=== PATIENT | female | born 1985 | race Caucasian/White ===

== ENCOUNTER → 2020-04-27 10:31 | Outpatient (CLI) | payer OTHER, MEDICAID, SELFPAY ==
--- NOTE | 2020-04-27 | DI.US.S_ITS ---
PROCEDURE: US THYROID INDICATIONS: Nontoxic single thyroid nodule TECHNIQUE: Real-time scanning was performed of the thyroid gland, with image documentation. COMPARISON: None. FINDINGS: Right: Thyroid lobe measures 6.0 x 2.1 x 1.8 cm, and is homogeneous in echotexture. Left: Thyroid lobe measures 5.7 x 1.9 x 2.5 cm, and is homogenous in echotexture. Isthmus: 1.8 mm thick. Nodule number: 1 Location: Left inferior Size: 3.3 x 1.6 x 2.2 cm. Composition: Solid Echogenicity: iso-hyperechoic Shape: wider than tall. Margins: Ranjeet Echogenic foci: Non Total points: 3 ACR TI-RADS category: Mildly suspicious IMPRESSION: 1. A mildly suspicious nodule in the inferior pole of the left thyroid lobe (TI-RAD 3). Recommend fine needle aspiration for tissue diagnosis. ACR TI-RADS definitions and recommendations: TI-RADS 1 (benign): 0 points. FNA not needed. TI-RADS 2 (not suspicious): 2 points. FNA not needed. TI-RADS 3 (mildly suspicious): 3 points. * FNA if 2.5 cm or larger, follow up if 1.5 cm or larger (at 1, 3, and 5 years). TI-RADS 4 (moderately suspicious): 4-6 points. * FNA if 1.5 cm or larger, follow up if 1 cm or larger (at 1, 2, 3, and 5 years). TI-RADS 5 (highly suspicious): 7 points or more. * FNA if 1 cm or larger, follow up if 0.5 cm or larger (every year for 5 years). Dictated by: Donte Higuera M.D. on 04/27/2020 at 11:54 Approved by: Donte Higuera M.D. on 04/27/2020 at 11:59
== END ==
PROVIDERS: PCP Family Medicine; Referring Provider Family Medicine; Visit Provider Family Medicine
DX: E04.1 Nontoxic single thyroid nodule (principal); E06.3 Autoimmune thyroiditis
CPT/HCPCS: 76536

== ENCOUNTER 2021-09-20 10:30 | Outpatient (RCR) | payer OTHER, MEDICAID, SELFPAY ==
--- NOTE | 2021-05-30 12:00 | PT.OPPOC ---
Physical, Occupational & Speech Therapy At [facility] Current Diagnoses Pain in unspecified hip (05/30/21) Dysmenorrhea, unspecified (05/30/21) Pelvic and perineal pain (05/30/21) Visit Care Team Role Provider Type Other Providers Specialty: Address: Phone: Fax: Email: Tj Sidhu ND Family Provider Non-Staff Primary Care Provider Specialty: Naturopathy Address: [address] [place] [address], [address], [place], [address] Email: Susana Gauthier DO Attending Provider Non-Staff Referring Provider Specialty: MICROBIOLOGY DIRECTOR Address: [address] [place] [address], [address], [address] Email: Plan Of Care PT-OP-T Assessment and Plan Start: 05/30/21 07:38 Freq: Status: Active Protocol: Document 05/30/21 09:00 AMB (Rec: 06/02/21 08:10 AMB [id number]) Physical Therapy Assessment Rehab Potential Rehabilitation Potential Good Evaluation Complexity Number of Personal Factors/Comorbidities 3 or More Number of Body Systems Impaired 4 or More Clinical Presentation at Evaluation Evolving Impairments Impairments Activity Tolerance,Functional Activities,Pain,ROM Goals Two Impairment Activity tolerance Short Term Goal (STG) Sarah will be consistent and independet with a HEP for her low back/pelvis/hip. STG Duration 4 weeks Residential Goal (LTG) Sarah will walk for 20 minutes without an increase in her baseline pain. LTG Duration 10 weeks One Impairment ROM Short Term Goal (STG) Sarah will improve her lumbar extension to 25 degrees without an increase in pain. STG Duration 5 weeks Assessment Summary Assessment Sarah attends PT with chronic dysmennorhea and is awaiting surgery for endometriosis. She states in the past 2 years her back and right hip pain have significantly worsened, so now she cannot walk more than 10 minutes and has stopped dancing. She will benefit from physical therapy for assitance in returning to activity in the context of likely having surgery for endometriosis. Physical Therapy Plan Frequency and Duration Frequency of Treatment 1x/Week Duration of Treatment 10 weeks Plan of Care Start Date 05/30/21 Plan of Care End Date 08/11/21 Therapeutic Interventions Therapeutic Interventions Gait Training,Home Exercise Program,Manual Therapy, Neuromuscular Re-education, Self-Care/Home Management,Soft Tissue Mobilization, Therapeutic Activities, Therapeutic Exercises Modalities Biofeedback,Cold Pack/Ice Massage,Electric Stimulation, Hot Packs Next Visit Focus/Plan Next Note Type Treatment Note Next Visit Plan teach MET for SI rotation, stretching program for endo Plan of Care Dates Plan of Care Start Date 05/30/21 Plan of Care End Date 08/11/21 Electronically Signed by: Amarilys Fajardo, PT 06/02/21 0811 Please Sign and Return: I have reviewed this Plan of Care and certify that the skilled therapy services above are required to meet the patient?s needs. Physician Signature Date Printed Name and Credentials Clinical Instructor Signature Printed Name and Credentials
--- NOTE | 2021-05-30 12:00 | PT.OIE ---
Current Diagnoses Pain in unspecified hip (05/30/21) Dysmenorrhea, unspecified (05/30/21) Pelvic and perineal pain (05/30/21) Visit Care Team Role Provider Type Other Providers Specialty: Address: Phone: Fax: Email: Tj Sidhu ND Family Provider Non-Staff Primary Care Provider Specialty: Naturopathy Address: [address] [place] [address], [address], [place], [address] Email: Susana Gauthier DO Attending Provider Non-Staff Referring Provider Specialty: SYSTEM VALIDATION ENGINEER Address: [address] [place] [address], [address], [place], [address] Email: Physical Therapy Initial Evaluation PT-OP-A Visit Information Start: 05/30/21 07:38 Freq: Status: Active Protocol: Document 05/30/21 09:00 AMB (Rec: 06/01/21 15:58 AMB [id number]) Out-Patient Physical Therapy Visit Information Visit Information Visit Type Initial Evaluation Visit Start Time 09:00 Visit Stop Time 09:45 Total Visit Minutes 45 Visit Number 1 PT-OP-B Current Condition Start: 05/30/21 07:38 Freq: Status: Active Protocol: Document 05/30/21 09:09 AMB (Rec: 05/30/21 09:22 AMB [id number]) Current Condition History of Current Condition Onset Date 2 years ago Current Complaints R hip/ LBP/ painful periods History of Current Condition Period pain since age 12, chronic pelvis/hip pain in the last 2 years. Doesn't walk because of pain 10 minutes of walking currently. Low back pain. Waiting on MRI, then hoping to have surgery for endometriosis. Not on control because had TIA type symptoms when on it. When on period takes tramadol, but then gets migraine afterwards, has to call out of work for 5 days. Prior Treatments and Tests Heat helps, possibly hip extension and impact (hopping/ running) makes it worse. Treatment Goals Patient/Caregiver Goals Be able to dance again Prior Functional Status Baseline Function- ADL's Independent Baseline Function- Mobility Independent Current Functional Impairments (Reported) Functional Limitations- ADL's Limited walking, working, dancing because of pain Personal Factors Other Personal Factors That May Effect pelvic pain, hip pain, back Therapy/Recovery pain, dysmenorrhea PT-OP-C Subjective Start: 05/30/21 07:38 Freq: Status: Active Protocol: Document 05/30/21 09:00 AMB (Rec: 06/02/21 07:50 AMB [id number]) OP-PT Pain Assessment Comments Pain Comments Low back ranges from 0-5, abdomen 9/10 during period, right hip 0-5 PT-OP-J Posture/Palpation/Skin Start: 06/02/21 07:33 Freq: Status: Active Protocol: Document 05/30/21 09:00 AMB (Rec: 06/02/21 07:50 AMB [id number]) Posture Evaluation Comments Posture Comments Supine: R ASIS rotated anteriorly, R malleolus appears long Palpation Assessment Location One Palpation Location R hip/abdomen Palpation Findings Soft Tissue Tightness,Muscle Guarding,Tenderness Palpation Details Tenderness over R psoas, R abdomen PT-OP-K Range of Motion Start: 06/02/21 07:33 Freq: Status: Active Protocol: Document 05/30/21 09:00 AMB (Rec: 06/02/21 07:50 AMB [id number]) Lumbar Spine Range of Motion Lumbar Spine Active Degrees Testing Position Standing Flexion 40 Extension 20 Lateral Flexion Left 20 Lateral Flexion Right 20 Comments pain with extension and right sidebending PT-OP-Q Treatments Start: 05/30/21 07:38 Freq: Status: Active Protocol: Document 05/30/21 09:00 AMB (Rec: 06/02/21 07:50 AMB [id number]) Therapeutic Exercises Standing Exercises 1 Standing Exercise Name active hamstring stretch against wall PT-OP-T Assessment and Plan Start: 05/30/21 07:38 Freq: Status: Active Protocol: Document 05/30/21 09:00 AMB (Rec: 06/02/21 08:10 AMB [id number]) Physical Therapy Assessment Rehab Potential Rehabilitation Potential Good Evaluation Complexity Number of Personal Factors/Comorbidities 3 or More Number of Body Systems Impaired 4 or More Clinical Presentation at Evaluation Evolving Impairments Impairments Activity Tolerance,Functional Activities,Pain,ROM Goals Two Impairment Activity tolerance Short Term Goal (STG) Sarah will be consistent and independet with a HEP for her low back/pelvis/hip. STG Duration 4 weeks Prize Coordinator Goal (LTG) Sarah will walk for 20 minutes without an increase in her baseline pain. LTG Duration 10 weeks One Impairment ROM Short Term Goal (STG) Sarah will improve her lumbar extension to 25 degrees without an increase in pain. STG Duration 5 weeks Assessment Summary Assessment Sarah attends PT with chronic dysmennorhea and is awaiting surgery for endometriosis. She states in the past 2 years her back and right hip pain have significantly worsened, so now she cannot walk more than 10 minutes and has stopped dancing. She will benefit from physical therapy for assitance in returning to activity in the context of likely having surgery for endometriosis. Physical Therapy Plan Frequency and Duration Frequency of Treatment 1x/Week Duration of Treatment 10 weeks Plan of Care Start Date 05/30/21 Plan of Care End Date 08/11/21 Therapeutic Interventions Therapeutic Interventions Gait Training,Home Exercise Program,Manual Therapy, Neuromuscular Re-education, Self-Care/Home Management,Soft Tissue Mobilization, Therapeutic Activities, Therapeutic Exercises Modalities Biofeedback,Cold Pack/Ice Massage,Electric Stimulation, Hot Packs Next Visit Focus/Plan Next Note Type Treatment Note Next Visit Plan teach MET for SI rotation, stretching program for endo
--- NOTE | 2021-06-08 15:49 | PT.OTN ---
Current Diagnoses Pain in unspecified hip (06/08/21) Dysmenorrhea, unspecified (06/08/21) Pelvic and perineal pain (06/08/21) Physical Therapy Treatment Note PT-OP-A Visit Information Start: 05/30/21 07:38 Freq: Status: Active Protocol: Document 06/08/21 13:45 AMB (Rec: 06/08/21 15:49 AMB [id number]) Out-Patient Physical Therapy Visit Information Visit Information Visit Type Treatment Note Visit Start Time 14:30 Visit Stop Time 15:15 Total Visit Minutes 45 Visit Number 2 PT-OP-B Current Condition Start: 05/30/21 07:38 Freq: Status: Active Protocol: Document 05/30/21 09:09 AMB (Rec: 05/30/21 09:22 AMB [id number]) Current Condition History of Current Condition Onset Date 2 years ago Current Complaints R hip/ LBP/ painful periods History of Current Condition Period pain since age 12, chronic pelvis/hip pain in the last 2 years. Doesn't walk because of pain 10 minutes of walking currently. Low back pain. Waiting on MRI, then hoping to have surgery for endometriosis. Not on control because had TIA type symptoms when on it. When on period takes tramadol, but then gets migraine afterwards, has to call out of work for 5 days. Prior Treatments and Tests Heat helps, possibly hip extension and impact (hopping/ running) makes it worse. Treatment Goals Patient/Caregiver Goals Be able to dance again Prior Functional Status Baseline Function- ADL's Independent Baseline Function- Mobility Independent Current Functional Impairments (Reported) Functional Limitations- ADL's Limited walking, working, dancing because of pain Personal Factors Other Personal Factors That May Effect pelvic pain, hip pain, back Therapy/Recovery pain, dysmenorrhea PT-OP-C Subjective Start: 05/30/21 07:38 Freq: Status: Active Protocol: Document 06/08/21 13:45 AMB (Rec: 06/08/21 15:49 AMB [id number]) OP-PT Subjective Patient Comments Patient Comments MRI did not show endometriosis , but did show mild disc degeneration at L5S1 per pt. Seeing in a month, but then probably further out for surgery. PT-OP-J Posture/Palpation/Skin Start: 06/02/21 07:33 Freq: Status: Active Protocol: Document 05/30/21 09:00 AMB (Rec: 06/02/21 07:50 AMB [id number]) Posture Evaluation Comments Posture Comments Supine: R ASIS rotated anteriorly, R malleolus appears long Palpation Assessment Location One Palpation Location R hip/abdomen Palpation Findings Soft Tissue Tightness,Muscle Guarding,Tenderness Palpation Details Tenderness over R psoas, R abdomen PT-OP-K Range of Motion Start: 06/02/21 07:33 Freq: Status: Active Protocol: Document 05/30/21 09:00 AMB (Rec: 06/02/21 07:50 AMB [id number]) Lumbar Spine Range of Motion Lumbar Spine Active Degrees Testing Position Standing Flexion 40 Extension 20 Lateral Flexion Left 20 Lateral Flexion Right 20 Comments pain with extension and right sidebending PT-OP-Q Treatments Start: 05/30/21 07:38 Freq: Status: Active Protocol: Document 06/08/21 13:45 AMB (Rec: 06/08/21 15:49 AMB [id number]) Therapeutic Exercises Supine Exercises MET for right anterior rot Reps/Minutes 6x4 Prone Exercises 1 Prone Exercise Name prone press up Reps/Minutes 6x5 Comments cue tA activation Standing Exercises 2 Standing Exercise Name hip flexor stretch Reps/Minutes 2x30 Comments standing against wall PT-OP-T Assessment and Plan Start: 05/30/21 07:38 Freq: Status: Active Protocol: Document 06/08/21 13:45 AMB (Rec: 06/08/21 15:49 AMB [id number]) Physical Therapy Assessment Goals Two Impairment Activity tolerance Short Term Goal (STG) Sarah will be consistent and independet with a HEP for her low back/pelvis/hip. STG Duration 4 weeks Bus Company Manager Goal (LTG) Sarah will walk for 20 minutes without an increase in her baseline pain. LTG Duration 10 weeks One Impairment ROM Short Term Goal (STG) Sarah will improve her lumbar extension to 25 degrees without an increase in pain. STG Duration 5 weeks Assessment Summary Assessment Sarah went through current exercise program which shows stretching for low back/hip. dynamic stretching, lots of flexion, encouraged some extension exercises, educated re anatomy of spine/pelvis. Physical Therapy Plan Next Visit Focus/Plan Next Note Type Treatment Note Next Visit Plan Follow up on MET for anterior SI rotation on R. Hip flexor and prone press up stretches.
--- NOTE | 2021-06-15 12:30 | PT.OTN ---
Current Diagnoses Pain in unspecified hip (06/15/21) Dysmenorrhea, unspecified (06/15/21) Pelvic and perineal pain (06/15/21) Physical Therapy Treatment Note PT-OP-A Visit Information Start: 05/30/21 07:38 Freq: Status: Active Protocol: Document 06/15/21 08:15 AMB (Rec: 06/15/21 10:30 AMB [id number]) Out-Patient Physical Therapy Visit Information Visit Information Visit Type Treatment Note Visit Start Time 08:15 Visit Stop Time 09:00 Total Visit Minutes 45 Visit Number 3 PT-OP-B Current Condition Start: 05/30/21 07:38 Freq: Status: Active Protocol: Document 05/30/21 09:09 AMB (Rec: 05/30/21 09:22 AMB [id number]) Current Condition History of Current Condition Onset Date 2 years ago Current Complaints R hip/ LBP/ painful periods History of Current Condition Period pain since age 12, chronic pelvis/hip pain in the last 2 years. Doesn't walk because of pain 10 minutes of walking currently. Low back pain. Waiting on MRI, then hoping to have surgery for endometriosis. Not on control because had TIA type symptoms when on it. When on period takes tramadol, but then gets migraine afterwards, has to call out of work for 5 days. Prior Treatments and Tests Heat helps, possibly hip extension and impact (hopping/ running) makes it worse. Treatment Goals Patient/Caregiver Goals Be able to dance again Prior Functional Status Baseline Function- ADL's Independent Baseline Function- Mobility Independent Current Functional Impairments (Reported) Functional Limitations- ADL's Limited walking, working, dancing because of pain Personal Factors Other Personal Factors That May Effect pelvic pain, hip pain, back Therapy/Recovery pain, dysmenorrhea PT-OP-C Subjective Start: 05/30/21 07:38 Freq: Status: Active Protocol: Document 06/15/21 08:15 AMB (Rec: 06/15/21 10:30 AMB [id number]) OP-PT Subjective Patient Comments Patient Comments Concerned about lumbar extension, not painful but uncomfortable. Having a good day today. PT-OP-J Posture/Palpation/Skin Start: 06/02/21 07:33 Freq: Status: Active Protocol: Document 05/30/21 09:00 AMB (Rec: 06/02/21 07:50 AMB [id number]) Posture Evaluation Comments Posture Comments Supine: R ASIS rotated anteriorly, R malleolus appears long Palpation Assessment Location One Palpation Location R hip/abdomen Palpation Findings Soft Tissue Tightness,Muscle Guarding,Tenderness Palpation Details Tenderness over R psoas, R abdomen PT-OP-K Range of Motion Start: 06/02/21 07:33 Freq: Status: Active Protocol: Document 05/30/21 09:00 AMB (Rec: 06/02/21 07:50 AMB [id number]) Lumbar Spine Range of Motion Lumbar Spine Active Degrees Testing Position Standing Flexion 40 Extension 20 Lateral Flexion Left 20 Lateral Flexion Right 20 Comments pain with extension and right sidebending PT-OP-Q Treatments Start: 05/30/21 07:38 Freq: Status: Active Protocol: Document 06/15/21 08:15 AMB (Rec: 06/15/21 10:30 AMB [id number]) Therapeutic Exercises Supine Exercises hamstring contract relax Reps/Minutes [id number] hip flexor stretch Reps/Minutes 30x2 Comments focus on left MET for right anterior rot Reps/Minutes 6x4 Manual Therapy Treatment Soft Tissue Mobilization 1 Body Location IT band, hip flexor Mobilization Type Myofascial Release Intensity/Depth Moderate Body Position Supine Other Other Manual Treatments ILU massage- instruction for pt in self massage PT-OP-T Assessment and Plan Start: 05/30/21 07:38 Freq: Status: Active Protocol: Document 06/15/21 08:15 AMB (Rec: 06/15/21 10:30 AMB [id number]) Physical Therapy Assessment Goals Two Impairment Activity tolerance Short Term Goal (STG) Sarah will be consistent and independet with a HEP for her low back/pelvis/hip. STG Duration 4 weeks Track Dresser Goal (LTG) Sarah will walk for 20 minutes without an increase in her baseline pain. LTG Duration 10 weeks One Impairment ROM Short Term Goal (STG) Sarah will improve her lumbar extension to 25 degrees without an increase in pain. STG Duration 5 weeks Assessment Summary Assessment Sarah did well with hip flexor stretch and ILU massage today. Told pt she can put prone press up on hold for now, as it is a bit uncomfortable. Physical Therapy Plan Next Visit Focus/Plan Next Visit Plan Possibly going on hold after next session waiting for surgery.
--- NOTE | 2021-09-07 15:56 | PT.OTRE ---
Current Diagnoses Pain in unspecified hip (09/07/21) Dysmenorrhea, unspecified (09/07/21) Pelvic and perineal pain (09/07/21) Visit Care Team Role Provider Type Other Providers Specialty: Address: Phone: Fax: Email: Tj Sidhu ND Family Provider Non-Staff Primary Care Provider Specialty: Naturopathy Address: [address] [place] [address], [address], [place], [address] Email: Susana Gauthier DO Attending Provider Non-Staff Referring Provider Specialty: BIOMETRICS CONSULTANT Address: [address] [place] [address], [address], [place], [address] Email: Physical Therapy Re-Evaluation PT-OP-A Visit Information Start: 05/30/21 07:38 Freq: Status: Active Protocol: Document 09/07/21 09:47 AMB (Rec: 09/07/21 10:38 AMB [id number]) Out-Patient Physical Therapy Visit Information Visit Information Visit Type Treatment Note Visit Start Time 09:45 Visit Stop Time 10:30 Total Visit Minutes 45 Visit Number 4 PT-OP-B Current Condition Start: 05/30/21 07:38 Freq: Status: Active Protocol: Document 09/07/21 09:47 AMB (Rec: 09/07/21 10:38 AMB [id number]) Current Condition History of Current Condition History of Current Condition L sided endometriosis removed. Feeling pelvic floor muscles more now (fatigued). Spasm and weak in pelvic floor, feels bladder spasm, but denies incontinence.. Seems like bladder spasm when relaxing, lying down. Coccyx pain before surgery after extended time in car. Spasms also in anterior pelvic floor. Relaxing seems to bring it on. 4-5 spasms in a day. Doesn't require increased toileting. Once an hour for void seems to be norm during day, but not getting up a lot at night. PT-OP-C Subjective Start: 05/30/21 07:38 Freq: Status: Active Protocol: Document 06/15/21 08:15 AMB (Rec: 06/15/21 10:30 AMB [id number]) OP-PT Subjective Patient Comments Patient Comments Concerned about lumbar extension, not painful but uncomfortable. Having a good day today. PT-OP-J Posture/Palpation/Skin Start: 06/02/21 07:33 Freq: Status: Active Protocol: Document 05/30/21 09:00 AMB (Rec: 06/02/21 07:50 AMB [id number]) Posture Evaluation Comments Posture Comments Supine: R ASIS rotated anteriorly, R malleolus appears long Palpation Assessment Location One Palpation Location R hip/abdomen Palpation Findings Soft Tissue Tightness,Muscle Guarding,Tenderness Palpation Details Tenderness over R psoas, R abdomen PT-OP-K Range of Motion Start: 06/02/21 07:33 Freq: Status: Active Protocol: Document 05/30/21 09:00 AMB (Rec: 06/02/21 07:50 AMB [id number]) Lumbar Spine Range of Motion Lumbar Spine Active Degrees Testing Position Standing Flexion 40 Extension 20 Lateral Flexion Left 20 Lateral Flexion Right 20 Comments pain with extension and right sidebending PT-OP-Q Treatments Start: 05/30/21 07:38 Freq: Status: Active Protocol: Document 09/07/21 09:45 AMB (Rec: 09/08/21 15:56 AMB [id number]) Therapeutic Exercises Supine Exercises post pelvic tilt Reps/Minutes 10 Comments wiht pelvic floor and TA hip flexor stretch Reps/Minutes 30x2 Comments focus on left Manual Therapy Treatment Soft Tissue Mobilization 2 Body Location bladder viscera superior Mobilization Type Myofascial Release,Sustained Pressure scar massage Comments instructed in self massage PT-OP-T Assessment and Plan Start: 05/30/21 07:38 Freq: Status: Active Protocol: Document 09/07/21 09:47 AMB (Rec: 09/07/21 10:38 AMB [id number]) Physical Therapy Assessment Goals Two Impairment Activity tolerance Short Term Goal (STG) Sarah will be consistent and independet with a HEP for her low back/pelvis/hip. STG Duration 4 weeks Social Psychologist Goal (LTG) Sarah will walk for 20 minutes without an increase in her baseline pain. LTG Duration MET One Impairment ROM Short Term Goal (STG) Sarah will improve her lumbar extension to 25 degrees without an increase in pain. STG Duration 5 weeks Assessment Summary Assessment Assessed Sarah's scar mobility and feeling of bladder spasms today. Overall her pain is significantly better than before surgery. Has walked up to 50 minutes. Further physical therapy will work on feelings of bladder spasms, tenderness over scars and overall hip/lumbar mobility. Physical Therapy Plan Frequency and Duration Frequency of Treatment 1x/Week Duration of Treatment 10 weeks Plan of Care Start Date 09/07/21 Plan of Care End Date 11/16/21 Therapeutic Interventions Therapeutic Interventions Gait Training,Home Exercise Program,Manual Therapy, Neuromuscular Re-education, Self-Care/Home Management,Soft Tissue Mobilization, Therapeutic Activities, Therapeutic Exercises Modalities Biofeedback,Cold Pack/Ice Massage,Electric Stimulation, Hot Packs Next Visit Focus/Plan Next Note Type Treatment Note Next Visit Plan Reassess scar tissue, bladder spasms
--- NOTE | 2021-09-07 15:57 | PT.OPPOC ---
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 STG Duration 4 weeks Usp Goal (LTG) Sarah will walk for 20 minutes without an increase in her baseline pain. LTG Duration MET One Impairment ROM Short Term Goal (STG) Sarah will improve her lumbar extension to 25 degrees without an increase in pain. STG Duration 5 weeks Assessment Summary Assessment Assessed Sarah's scar mobility and feeling of bladder spasms today. Overall her pain is significantly better than before surgery. Has walked up to 50 minutes. Further physical therapy will work on feelings of bladder spasms, tenderness over scars and overall hip/lumbar mobility. Physical Therapy Plan Frequency and Duration Frequency of Treatment 1x/Week Duration of Treatment 10 weeks Plan of Care Start Date 09/07/21 Plan of Care End Date 11/16/21 Therapeutic Interventions Therapeutic Interventions Gait Training,Home Exercise Program,Manual Therapy, Neuromuscular Re-education, Self-Care/Home Management,Soft Tissue Mobilization, Therapeutic Activities, Therapeutic Exercises Modalities Biofeedback,Cold Pack/Ice Massage,Electric Stimulation, Hot Packs Next Visit Focus/Plan Next Note Type Treatment Note Next Visit Plan Reassess scar tissue, bladder spasms Plan of Care Dates Plan of Care Start Date 09/07/21 Plan of Care End Date 11/16/21 Electronically Signed by: Amarilys Fajardo, PT 09/08/21 4912 If you are in agreement with this Plan of Care, please return a signed and dated copy. I have reviewed this Plan of Care and certify that the skilled therapy services above are required to meet the patient?s needs. Physician Signature Date Printed Name and Credentials Clinical Instructor Signature Printed Name and Credentials
--- NOTE | 2021-09-20 12:02 | PT.OTN ---
Current Diagnoses Pain in unspecified hip (09/20/21) Dysmenorrhea, unspecified (09/20/21) Pelvic and perineal pain (09/20/21) Physical Therapy Treatment Note PT-OP-A Visit Information Start: 05/30/21 07:38 Freq: Status: Active Protocol: Document 09/20/21 10:35 AMB (Rec: 09/20/21 11:18 AMB [id number]) Out-Patient Physical Therapy Visit Information Visit Information Visit Type Treatment Note Visit Start Time 09:45 Visit Stop Time 10:30 Total Visit Minutes 45 Visit Number 5 PT-OP-B Current Condition Start: 05/30/21 07:38 Freq: Status: Active Protocol: Document 09/07/21 09:47 AMB (Rec: 09/07/21 10:38 AMB [id number]) Current Condition History of Current Condition History of Current Condition L sided endometriosis removed. Feeling pelvic floor muscles more now (fatigued). Spasm and weak in pelvic floor, feels bladder spasm, but denies incontinence.. Seems like bladder spasm when relaxing, lying down. Coccyx pain before surgery after extended time in car. Spasms also in anterior pelvic floor. Relaxing seems to bring it on. 4-5 spasms in a day. Doesn't require increased toileting. Once an hour for void seems to be norm during day, but not getting up a lot at night. PT-OP-C Subjective Start: 05/30/21 07:38 Freq: Status: Active Protocol: Document 09/20/21 10:30 AMB (Rec: 09/21/21 11:59 AMB [id number]) OP-PT Subjective Patient Comments Patient Comments Sarah is doing well, thinks she may not need any more PT after this one. 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 PT-OP-J Posture/Palpation/Skin Start: 06/02/21 07:33 Freq: Status: Active Protocol: Document 05/30/21 09:00 AMB (Rec: 06/02/21 07:50 AMB [id number]) Posture Evaluation Comments Posture Comments Supine: R ASIS rotated anteriorly, R malleolus appears long Palpation Assessment Location One Palpation Location R hip/abdomen Palpation Findings Soft Tissue Tightness,Muscle Guarding,Tenderness Palpation Details Tenderness over R psoas, R abdomen PT-OP-K Range of Motion Start: 06/02/21 07:33 Freq: Status: Active Protocol: Document 05/30/21 09:00 AMB (Rec: 06/02/21 07:50 AMB [id number]) Lumbar Spine Range of Motion Lumbar Spine Active Degrees Testing Position Standing Flexion 40 Extension 20 Lateral Flexion Left 20 Lateral Flexion Right 20 Comments pain with extension and right sidebending PT-OP-Q Treatments Start: 05/30/21 07:38 Freq: Status: Active Protocol: Document 09/20/21 10:30 AMB (Rec: 09/21/21 11:59 AMB [id number]) Therapeutic Activity Therapeutic Activity lifting mechanics Comments 10# from waist height- good. 10# from floor height challenging after 2 reps. Good form with 4# from floor, does tend to have a bit of thoracic kyphosis. PT-OP-T Assessment and Plan Start: 05/30/21 07:38 Freq: Status: Active Protocol: Document 09/20/21 10:35 AMB (Rec: 09/20/21 11:18 AMB [id number]) Physical Therapy Assessment Goals Two Impairment Activity tolerance Short Term Goal (STG) Sarah will be consistent and independet with a HEP for her low back/pelvis/hip. STG Duration 4 weeks Snf Goal (LTG) Sarah will walk for 20 minutes without an increase in her baseline pain. LTG Duration MET One Impairment ROM Short Term Goal (STG) Sarah will improve her lumbar extension to 25 degrees without an increase in pain. STG Duration 5 weeks Assessment Summary Assessment Prolonged standing can be challenging, lifting maybe 10 pounds at this point, would like to be able to lift 40#. Pt did have difficulty lifting 10 pounds from floor. Extenisve time spent with how to safely and progressively working on lifting for return to full work. 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 Physical Therapy Plan Next Visit Focus/Plan Next Note Type Treatment Note Next Visit Plan Will plan to see pt in one month if she is not able to progress her lifting alone, if she is doing well and able to return to work independently, she will call the clinic and cancel her appointment and ok to d/c at that time.
--- NOTE | 2021-11-10 16:04 | PT.OPDS ---
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 Feeling pelvic floor muscles more now (fatigued). Spasm and weak in pelvic floor, feels bladder spasm, but denies incontinence.. Seems like bladder spasm when relaxing, lying down. Coccyx pain before surgery after extended time in car. Spasms also in anterior pelvic floor. Relaxing seems to bring it on. 4-5 spasms in a day. Doesn't require increased toileting. Once an hour for void seems to be norm during day, but not getting up a lot at night. PT-OP-C Subjective Start: 05/30/21 07:38 Freq: Status: Active Protocol: Document 09/20/21 10:30 AMB (Rec: 09/21/21 11:59 AMB [id number]) OP-PT Subjective Patient Comments Patient Comments Sarah is doing well, thinks she may not need any more PT after this one. 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 PT-OP-J Posture/Palpation/Skin Start: 06/02/21 07:33 Freq: Status: Active Protocol: Document 05/30/21 09:00 AMB (Rec: 06/02/21 07:50 AMB [id number]) Posture Evaluation Comments Posture Comments Supine: R ASIS rotated anteriorly, R malleolus appears long Palpation Assessment Location One Palpation Location R hip/abdomen Palpation Findings Soft Tissue Tightness,Muscle Guarding,Tenderness Palpation Details Tenderness over R psoas, R abdomen PT-OP-K Range of Motion Start: 06/02/21 07:33 Freq: Status: Active Protocol: Document 05/30/21 09:00 AMB (Rec: 06/02/21 07:50 AMB [id number]) Lumbar Spine Range of Motion Lumbar Spine Active Degrees Testing Position Standing Flexion 40 Extension 20 Lateral Flexion Left 20 Lateral Flexion Right 20 Comments pain with extension and right sidebending PT-OP-T Assessment and Plan Start: 05/30/21 07:38 Freq: Status: Active Protocol: Document 11/10/21 16:03 AMB (Rec: 11/10/21 16:03 AMB [id number]) Physical Therapy Assessment Goals Two Impairment Activity tolerance Short Term Goal (STG) Sarah will be consistent and independet with a HEP for her low back/pelvis/hip. STG Duration 4 weeks Line Installation Supervisor Goal (LTG) Sarah will walk for 20 minutes without an increase in her baseline pain. LTG Duration MET One Impairment ROM Short Term Goal (STG) Sarah will improve her lumbar extension to 25 degrees without an increase in pain. STG Duration 5 weeks Assessment Summary Assessment Sarah feels she is ready for discharge, so she canceled her remaining appointments, she is therefore discharged. Physical Therapy Plan Discharge Physical Therapy Discharge Reasons Goals Met
== END 2021-11-14 14:38 ==
LOC: PHYS 10:30
PROVIDERS: Family Provider Naturopath; PCP Naturopath; Referring Provider Obstetrics & Gynecology; Visit Provider Obstetrics & Gynecology
DX: N94.6 Dysmenorrhea, unspecified (principal); R10.2 Pelvic and perineal pain; M25.559 Pain in unspecified hip
CPT/HCPCS: 97110; 97140; 97162; 97164; 97530